=== PATIENT | male | born 1975 | race Caucasian/White ===

== ENCOUNTER 2018-07-30 17:08 | Emergency (ER) | payer MEDICARE, MEDICAID ==
[~2018-07-30] VITALS: Ht 172.7 cm; Wt 76.4 kg
[2018-07-30 17:22] VITALS: Ht 172.7 cm; Wt 76.4 kg
[2018-07-30] MEDS ORDERED: LYRICA100 MG PO (17:23)
[2018-07-30] MEDS ORDERED: HYDROCODON-ACE1 EAC7 PO (17:23)
[2018-07-30] MEDS ORDERED: VALIUM5 MG PO (17:23)
[2018-07-30] MEDS ORDERED: EFFEXOR37.5 MG PO (17:24)
[2018-07-30] MEDS ORDERED: LINZESS145 MCG PO (17:24)
[2018-07-30] MEDS ORDERED: AUGMENTIN 875-11 TAB PO (20:29)
[2018-07-30 21:20] VITALS: BP 130/78
== END 2018-07-30 21:20 | disposition home or self-care (01) ==
LOC: D.ER 17:08
DX: J02.9 Acute pharyngitis, unspecified (principal); F17.200 Nicotine dependence, unspecified, uncomplicated

== ENCOUNTER 2018-09-30 15:08 | Emergency (ER) | payer MEDICARE, MEDICAID ==
[~2018-09-30] VITALS: Ht 172.7 cm; Wt 68.2 kg
[~2018-09-30 15:08] MED LIST: AUGMENTIN 875-11 TAB PO; EFFEXOR37.5 MG PO; HYDROCODON-ACE1 EAC7 PO; LINZESS145 MCG PO; LYRICA100 MG PO; VALIUM5 MG PO
[2018-09-30 15:13] VITALS: Ht 172.7 cm; Wt 68.2 kg
[2018-09-30] MEDS ORDERED: PREDNISONE20 MG PO (15:15)
[2018-09-30 17:00] VITALS: BP 147/87
== END 2018-09-30 17:00 | disposition home or self-care (01) ==
LOC: D.ER 15:08
DX: G56.02 Carpal tunnel syndrome, left upper limb (principal); F17.200 Nicotine dependence, unspecified, uncomplicated

== ENCOUNTER 2018-11-21 11:26 | Emergency (ER) | payer MEDICARE, MEDICAID ==
[~2018-11-21] VITALS: Ht 172.7 cm; Wt 61.4 kg
[~2018-11-21 11:26] MED LIST changes: +PREDNISONE20 MG PO
[2018-11-21 12:09] VITALS: Ht 172.7 cm; Wt 61.4 kg
[2018-11-21 12:34] LABS: BASOPHILS 0.2 % (0-2); EOSINOPHILS 1.9 % (0-7); HEMATOCRIT 43.3 % (42.0-54.0); HEMOGLOBIN 15.3 g/dL (13.5-17.5); IMMATURE GRANULOCYTES 0.3 % (0-5); LYMPHOCYTES 15.4 % (15-50); MCH 32.3 pg (26.0-34.0); MCHC 35.3 g/dL (31.0-37.0); MCV 91.4 fL (80.0-100.0); MEAN PLATELET VOLUME 11.4 fL (7.4-10.4); MONOCYTES 10.3 % (2-11); NEUTROPHILS 71.9 % (40-80); PLATELET COUNT 187 10x3/uL (130-400); RBC 4.74 10x6/uL (4.20-6.10); RDW 14.2 % (11.5-14.5); WBC 12.9 10x3/uL (4.8-10.8)
[2018-11-21 12:42] LABS: APTT 32.7 SECONDS (22.8-39.4); INR 1.03 (0.85-1.17)
[2018-11-21 12:50] LABS: ALBUMIN 3.4 g/dL (3.4-5.0); ALKALINE PHOSPHATASE 115 U/L (46-116); ALT (SGPT) 26 U/L (10-68); BILIRUBIN - TOTAL 0.25 mg/dL (0.2-1.3); CALC OSMOLALITY 282 mosm/kg (275-300); CALCIUM 9.2 mg/dL (8.5-10.1); CARBON DIOXIDE 23.4 mmol/L (21.0-32.0); CHLORIDE - SERUM 106 mmol/L (98-107); CREATININE - SERUM 0.9 mg/dL (0.6-1.3); GLUCOSE 107 mg/dL (74-106); POTASSIUM - SERUM 4.3 mmol/L (3.5-5.1); PROTEIN - SERUM 8.3 g/dL (6.4-8.2); SODIUM 143 mmol/L (136-145); UREA NITROGEN 6 mg/dL (7-18); eGFR NON AFRICAN AMERICAN > 90 mL/min (90-120)
[2018-11-21 13:10] LABS: CKMB 0.6 U/L (0.0-3.6); CREATINE KINASE 109 UL (21-232); PRO BNP 59 pg/mL (0-125); TROPONIN-I < 0.017 ng/mL (0.000-0.060)
[2018-11-21] MEDS ORDERED: PHENERGAN DM SYR5 ML PO (14:21)
[2018-11-21] MEDS ORDERED: VIBRAMYCIN 100100 MG PO (14:21)
[2018-11-21 14:55] VITALS: BP 115/73
== END 2018-11-21 14:55 | disposition home or self-care (01) ==
LOC: D.ER 11:26
PROVIDERS: Family Medicine
DX: J06.9 Acute upper respiratory infection, unspecified (principal); J40 Bronchitis, not specified as acute or chronic

== ENCOUNTER 2021-01-13 09:50 | Emergency (ER) | payer MEDICAID ==
[~2021-01-13] VITALS: Ht 174.2 cm; Wt 79.5 kg
[~2021-01-13 09:50] MED LIST changes: +BACTRIM 400-801 TAB PO; +PHENERGAN DM SYR5 ML PO; +VIBRAMYCIN 100100 MG PO
[2021-01-13 09:52] VITALS: BP 182/84; Ht 174.2 cm; Wt 79.5 kg
[2021-01-13] MEDS ORDERED: XANAX1 MG PO (09:58)
[2021-01-13 10:05] LABS: BASOPHILS 0.2 % (0-2); EOSINOPHILS 0.6 % (0-7); HEMATOCRIT 40.6 % (42.0-54.0); HEMOGLOBIN 13.8 g/dL (13.5-17.5); IMMATURE GRANULOCYTES 0.2 % (0-5); LYMPHOCYTE ABS# 2.02 10x3/uL (1.32-3.57); LYMPHOCYTES 16.2 % (15-50); MCH 30.5 pg (26.0-34.0); MCV 89.6 fL (80.0-100.0); MEAN PLATELET VOLUME 11.3 fL (7.4-10.4); MONOCYTES 8.3 % (2-11); NEUTROPHIL ABS# 9.28 10x3/uL (1.78-5.38); NEUTROPHILS 74.5 % (40-80); RBC 4.53 10x6/uL (4.20-6.10); RDW 13.4 % (11.5-14.5); WBC 12.5 10x3/uL (4.8-10.8)
[2021-01-13 10:06] LABS: PLATELET COUNT 234 10x3/uL (130-400)
[2021-01-13 10:13] LABS: CALC OSMOLALITY 278 mosm/kg (275-300); CALCIUM 8.7 mg/dL (8.5-10.1); CARBON DIOXIDE 27.5 mmol/L (21.0-32.0); CHLORIDE - SERUM 103 mmol/L (98-107); CREATININE - SERUM 0.9 mg/dL (0.6-1.3); GLUCOSE 140 mg/dL (74-106); POTASSIUM - SERUM 3.1 mmol/L (3.5-5.1); SODIUM 140 mmol/L (136-145); UREA NITROGEN 6 mg/dL (7-18); eGFR NON AFRICAN AMERICAN > 90 mL/min (90-120)
[2021-01-13 10:23] LABS: APTT 33.8 SECONDS (22.8-39.4); INR 1.26 (0.85-1.17); PROTIME 14.7 SECONDS (11.6-15.0)
[2021-01-13 10:30] LABS: ALBUMIN 3.6 g/dL (3.4-5.0); ALKALINE PHOSPHATASE 122 U/L (30-120); ALT (SGPT) 20 U/L (10-68); BILIRUBIN - TOTAL 0.46 mg/dL (0.2-1.3); CKMB 3.2 U/L (0.0-3.6); CREATINE KINASE 215 UL (21-232); MAGNESIUM - SERUM 2.2 mg/dL (1.8-2.4); PROTEIN - SERUM 7.9 g/dL (6.4-8.2); TROPONIN-I < 0.017 ng/mL (0.000-0.060)
[2021-01-13] MEDS ORDERED: VISTARIL50 MG PO (12:58)
== END 2021-01-13 13:12 | disposition home or self-care (01) ==
LOC: D.ER 09:50
PROVIDERS: Family Medicine
DX: R07.9 Chest pain, unspecified (principal); F41.0 Panic disorder [episodic paroxysmal anxiety]; J44.9 Chronic obstructive pulmonary disease, unspecified; Z72.0 Tobacco use; R10.9 Unspecified abdominal pain